=== PATIENT | male | born 1950 | race Two or more races ===

== ENCOUNTER 2024-01-24 05:10 | Day surgery (SDC) | payer OTHER ==
[2024-01-21 10:38] LABS: HEMATOCRIT 32.7 % (39.0-48.0); HEMOGLOBIN 10.9 g/dL (13-16.00); MEAN CELL VOLUME 83.9 fL (80.0-100.00); MEAN CORPUSCULAR HGB CONC 33.4 g/dl (32.0-36.0); PH,URINE 5.5 (5.0-8.0); PLATELET COUNT 315 K/uL (150-450); RED CELL DISTRIBUTION WIDTH 17.4 % (11.5-14.5); URINE APPEARANCE Turbid; URINE BILIRRUBIN Negative (NEGATIVE); URINE BLOOD Moderate; URINE COLOR Yellow; URINE GLUCOSE Negative (NEGATIVE); URINE LEUKOCYTE Large; URINE NITRATE Negative; URINE PROTEIN 30 (NEGATIVE); URINE UROBILINOGEN 0.2 E.U./dl
[2024-01-21 10:41] LABS: URINE EPITHELIAL CELLS 36.3 uL (0.0-38.8); URINE RBC 29.1 uL (0.0-20.8)
[2024-01-21 11:02] LABS: URINE BACTERIA > 9821.5 uL (0.0-1933); URINE WBC > 5548.3 uL (0.0-23.2)
[2024-01-21 11:04] LABS: INR 1.01; PARTIAL THROMBOPLASTIN TIME 30.3 SECONDS (22.0-34.0); PROTHROMBIN TIME 10.6 SECONDS (9.0-11.5)
[2024-01-21 11:12] LABS: CALCIUM 9.6 mg/dL (8.5-10.1); CREATININE SERUM 1.54 mg/dL (0.70-1.30); GFR 44.63; POTASSIUM 4.23 mEq/L (3.5-5.1)
[2024-01-24] MEDS ORDERED: GENTAMICIN SULFATE 40 MG/ML VIAL IV ONE (15:45)
[2024-01-24] MEDS ORDERED: CHLORHEXIDINE GLUCONATE 120 ML BOTTLE TOP ONE (15:45)
== END 2024-01-24 19:05 | disposition home or self-care (01) ==
LOC: CIR.AMB 05:10
PROVIDERS: ATTEND Urology
DX: N40.1 Benign prostatic hyperplasia with lower urinary tract symptoms (principal); R33.9 Retention of urine, unspecified; I10 Essential (primary) hypertension; E03.9 Hypothyroidism, unspecified; Z88.1 Allergy status to other antibiotic agents; Z88.0 Allergy status to penicillin